=== PATIENT | female | born 1955 | race Caucasian/White ===

== ENCOUNTER 2018-09-15 11:48 | Emergency (ER) | payer OTHER ==
[2018-09-15] MEDS ORDERED: Sodium Chloride 0.9% 10 ML Syringe FLUSH PRN (12:00)
[2018-09-15] MEDS ORDERED: Sodium Chloride 0.9% 1,000 ML IV ONE (12:00)
--- NOTE | 2018-09-15 12:09 | EDM.PDOC ---
ED HPI GENERAL MEDICAL PROBLEM - General Stated Complaint: CHEST PAIN Time Seen by Provider: 09/15/18 11:49 Source of Information: Reports: Patient History Limitations: Reports: No Limitations - History of Present Illness INITIAL COMMENTS - FREE TEXT/NARRATIVE: Patient's a 63-year-old female who presents to the emergency department this afternoon with a complaint of chest pain. Patient states at noon yesterday, she had been gardening for approximately 3 hours and developed midsternal chest pain. Pain seemed to radiate to her left shoulder down left arm and also to her jaw. Patient decided to enter the house and lay down. Symptoms minimally improved and she was able to sleep for a few hours. At approximately 1 a.m. today patient woke, felt nauseous and vomited. Chest discomfort has persisted since, although diminished. Patient states that she has felt nauseous all morning and decided to contact the [facility]. She was advised to present to the emergency department. Patient does have a history of cardiomyopathy, but denies fever, out of country travel, lower extremity edema, bowel changes, blood in vomitus, change in medication, headache, dizziness, or vision changes. Onset: Sudden Onset Date: 09/14/18 Onset Time: 12:00 Duration: Day(s):, Waxing/Waning Location: Reports: Chest, Abdomen Quality: Reports: Dull Severity: Mild Improves with: Reports: None Worsens with: Reports: None Context: Reports: Activity. Denies: Exercise, Lifting, Sick Contact, Trauma Associated Symptoms: Reports: Chest Pain, Nausea/Vomiting. Denies: Cough, Diaphoresis, Fever/Chills, Headaches, Shortness of Breath, Syncope Left Posterior Chest Pain Score (Numeric/FACES): 3 - Related Data Allergies Allergy/AdvReac Type Severity Reaction Status Date / Time No Known Drug Allergies Allergy Cannot Verified 09/15/18 12:35 Remember Home Meds: Home Meds Metoprolol Succinate [Toprol XL 50mg] 50 mg PO BEDTIME 09/15/18 [History] Rosuvastatin Calcium 10 mg PO BEDTIME 09/15/18 [History] dilTIAZem HCl [Diltiazem 24Hr ER] 240 mg PO DAILY 09/15/18 [History] hydroCHLOROthiazide [Hydrochlorothiazide] 25 mg PO DAILY 09/15/18 [History] raNITIdine HCl [Zantac] 150 mg PO BEDTIME 09/15/18 [History] ED ROS GENERAL - Review of Systems Review Of Systems: ROS reveals no pertinent complaints other than HPI. Constitutional: Reports: No Symptoms HEENT: Reports: No Symptoms Respiratory: Reports: No Symptoms Cardiovascular: Reports: Chest Pain Endocrine: Reports: No Symptoms GI/Abdominal: Reports: No Symptoms : Reports: No Symptoms Musculoskeletal: Reports: No Symptoms Skin: Reports: No Symptoms Neurological: Reports: No Symptoms Psychiatric: Reports: No Symptoms Hematologic/Lymphatic: Reports: No Symptoms Immunologic: Reports: No Symptoms ED EXAM, GENERAL - Physical Exam Exam: See Below Exam Limited By: No Limitations General Appearance: Alert, WD/WN, No Apparent Distress Eye Exam: Bilateral Eye: Normal Inspection Nose: Normal Inspection, Normal Mucosa, No Blood Throat/Mouth: Normal Inspection, Normal Oropharynx, No Airway Compromise Head: Atraumatic, Normocephalic Neck: Normal Inspection, Supple, Non-Tender, Full Range of Motion. No: Carotid Bruit, Lymphadenopathy (L), Lymphadenopathy (R) Respiratory/Chest: No Respiratory Distress, Lungs Clear, Normal Breath Sounds, No Accessory Muscle Use Cardiovascular: Normal Peripheral Pulses, Bradycardia, Systolic Murmur GI/Abdominal: Normal Bowel Sounds, Soft, Non-Tender, No Organomegaly, No Abnormal Bruit, No Mass Back Exam: Normal Inspection. No: CVA Tenderness (L), CVA Tenderness (R) Extremities: Normal Inspection, Non-Tender, No Pedal Edema, Normal Capillary Refill Neurological: Alert, Oriented, CN II-XII Intact, Normal Cognition Psychiatric: Normal Affect, Normal Mood Skin Exam: Warm, Dry, Intact, Normal Color, No Rash Lymphatic: No Adenopathy EKG INTERPRETATION EKG Date: 09/15/18 Time: 12:00 Rhythm: Other (Sinus bradycardia) Rate (Beats/Min): 50 [place]: Normal P-Wave: Present QRS: Normal ST-T: Other (Flipped T waves) QT: Normal Comparison: NA - No Prior EKG EKG Interpretation Comments: second ekg at 1340: hr 58 / no change from previous Course - Vital Signs Last Recorded V/S: Last Vital Signs Temp 98.1 F 09/15/18 12:09 Pulse 52 L 09/15/18 12:45 Resp 17 09/15/18 12:45 BP 103/37 L 09/15/18 12:45 Pulse Ox 96 07/01/19 12:45 - Orders/Labs/Meds Orders: Active Orders 24 hr Category Date Time Status EKG Documentation Completion [RC] ASDIRECTED Care 09/15/18 11:59 Ordered EKG Documentation Completion [RC] ASDIRECTED Care 09/15/18 13:30 Ordered Peripheral IV Care [RC] . DIRECTED Care 09/15/18 12:00 Ordered Sodium Chloride 0.9% [Saline Flush] Med 09/15/18 12:00 Ordered 10 ml FLUSH Q8HR PRN Peripheral IV Insertion Adult [OM.PC] Routine Oth 09/15/18 12:00 Ordered Medication Orders Sodium Chloride (Saline Flush) 10 ml FLUSH Q8HR PRN PRN Reason: keep vein open Labs: Laboratory Tests 09/15/18 09/15/18 09/15/18 Range/Units 12:15 12:15 12:15 WBC 14.47 H (5.00-10.00) 10^3/uL RBC 4.24 (3.80-5.50) 10^6/uL Hgb 13.1 (12.0-16.0) g/dL Hct 38.1 (37.0-47.0) % MCV 89.9 D (82.0-92.0) fL MCH 30.9 (27.0-31.0) pg MCHC 34.4 (32.0-36.0) g/dL RDW 12.5 (11.5-14.5) % Plt Count 245 (150-400) 10^3/uL MPV 9.0 (7.4-10.4) fL Immature Gran % (Auto) 0.2 (0.0-5.0) % Neut % (Auto) 76.6 H (50.0-70.0) % Lymph % (Auto) 17.3 L (20.0-40.0) % [place] % (Auto) 5.6 (2.0-8.0) % Eos % (Auto) 0.2 L (1.0-3.0) % Baso % (Auto) 0.1 (0.0-1.0) % Immature Gran # (Auto) 0.03 (0.00-0.50) 10^3/uL Neut # (Auto) 11.08 H (2.50-7.00) 10^3/uL Lymph # (Auto) 2.51 (1.00-4.00) 10^3/uL [place] # (Auto) 0.81 H (0.10-0.80) 10^3/uL Eos # (Auto) 0.03 L (0.10-0.30) 10^3/uL Baso # (Auto) 0.01 (0.00-0.10) 10^3/uL PT 10.5 (8.9-11.4) SEC INR 1.0 (0.9-1.1) APTT 26.7 (23.1-31.9) SEC Sodium 141 (136-145) mmol/L Potassium 3.5 (3.3-5.3) mmol/L Chloride 103 (98-115) mmol/L Carbon Dioxide 27.8 (21.0-32.0) mmol/L Anion Gap 13.7 (5-15) mmol/L BUN 24 (6-25) mg/dL Creatinine 1.07 (0.51-1.17) mg/dL Est Cr Clr Drug Dosing 43.12 mL/min Estimated GFR (MDRD) 52 mL/min Glucose 101 H (75 - 99) mg/dL Calcium 9.5 (8.7-10.3) mg/dL Magnesium 2.3 (1.8-2.4) mg/dL Total Bilirubin 0.5 (0.2-1.0) mg/dL AST 102 H (15-37) U/L ALT 26 (12-78) U/L Alkaline Phosphatase 67 (46-116) IU/L Troponin I 10.72 H* (0.00-0.070) ng/mL B-Natriuretic Peptide 447 H (0-100) pg/mL Total Protein 8.0 (6.4-8.2) g/dL Albumin 3.69 (3.00-4.80) g/dL Lipase 84 (73-393) U/L Meds: Medications Generic Name Dose Route Start Last Admin Trade Name Freq PRN Reason Stop Dose Admin Sodium Chloride 10 ml 09/15/18 12:00 Saline Flush FLUSH Q8HR PRN keep vein open Discontinued Medications Generic Name Dose Route Start Last Admin Trade Name Freq PRN Reason Stop Dose Admin Aspirin 324 mg 09/15/18 13:57 Aspirin PO 07/01/19 13:58 ONETIME ONE Heparin Sodium (Porcine) 5,000 units 09/15/18 13:50 Heparin Sodium IVPUSH 09/15/18 13:51 ONETIME ONE Sodium Chloride 1,000 mls @ 999 mls/hr 09/15/18 12:00 09/15/18 12:15 Normal Saline IV 09/15/18 13:00 999 mls/hr .BOLUS ONE Administration Ondansetron HCl 4 mg 09/15/18 12:13 09/15/18 12:26 Zofran Odt PO 09/15/18 12:14 4 mg ONETIME ONE Administration - Radiology Interpretation Free Text/Narrative:: Chest x-ray shows no acute cardiopulmonary process - Re-Assessments/Exams Free Text/Narrative Re-Assessment/Exam: 09/15/18 14:[address] Hanna, cardiology at [facility]. Recommends patient be transferred to [place] for further workup. Discussed case with hospitalist DIRECT[employer] Madhavi Carlton, and patient will be admitted to their service in ICU. Currently, patient afebrile, vital signs stable, chest discomfort, midsternal, and minimal. Aspirin, 5000 Heparin bolus and heparin hourly started. Patient will be transferred via ground [facility] to [facility]. 09/15/18 14:15 Departure - Departure Time of Disposition: 14:05 Disposition: DC/Tfer to Acute Hospital 02 Reason for Transfer *Q: Primary PCI Indicated Condition: Fair Clinical Impression: Non-ST elevated myocardial infarction (non-STEMI) Chest pain Qualifiers: Chest pain type: unspecified Qualified Code(s): R07.9 - Chest pain, unspecified Referrals: Teresa Aldana MD [Primary Care Provider] - Forms: ED Department Discharge, Interfacility Transfer EMTALA - My Orders Last 24 Hours: My Active Orders 09/15/18 11:59 EKG Documentation Completion [RC] ASDIRECTED 09/15/18 12:00 Peripheral IV Care [RC] . DIRECTED Sodium Chloride 0.9% [Saline Flush] 10 ml FLUSH Q8HR PRN Peripheral IV Insertion Adult [OM.PC] Routine 09/15/18 13:30 EKG Documentation Completion [RC] ASDIRECTED - Assessment/Plan Last 24 Hours: My Active Orders 09/15/18 11:59 EKG Documentation Completion [RC] ASDIRECTED 09/15/18 12:00 Peripheral IV Care [RC] . DIRECTED Sodium Chloride 0.9% [Saline Flush] 10 ml FLUSH Q8HR PRN Peripheral IV Insertion Adult [OM.PC] Routine 09/15/18 13:30 EKG Documentation Completion [RC] ASDIRECTED Assessment:: Chest pain Plan: Transfer to [facility]
[2018-09-15] MEDS ORDERED: Ondansetron 4 MG Tab.DIS PO ONE (12:13)
--- NOTE | 2018-09-15 12:34 | CR ---
[id number] RAD/RAD Chest PA or AP 1V EXAM: SINGLE VIEW CHEST. INDICATION: CHEST PAIN COMPARISON: NO PREVIOUS SIMILAR EXAM IS AVAILABLE FINDINGS: The lungs are clear. The aorta is slightly tortuous. The cardiac silhouette is moderately enlarged. IMPRESSION: NO PNEUMONIA OR EDEMA. Aly Anton MD 09/15/18 [id number] Thank you for allowing us to participate in the care of your patient.
[2018-09-15 12:58] LABS: ANION GAP 13.7 mmol/L (5-15)
[2018-09-15] MEDS ORDERED: Heparin Sodium 5,000 Units/ML Vial IVPUSH ONE (13:50)
[2018-09-15] MEDS ORDERED: Aspirin 81 MG Tab.Chew PO ONE (13:57)
[2018-09-15] MEDS ORDERED: Heparin Sodium 5,000 Units/ML Vial IV ONE (14:16)
[2018-09-15] MEDS ORDERED: Heparin Sodium/0.45% NaCl 25,000 UNITS/250 ML BAG IV ONE (15:00)
== END 2018-09-15 14:45 ==
LOC: KA.ED 11:48
DX: I21.4 Non-ST elevation (NSTEMI) myocardial infarction (principal)
CPT/HCPCS: 36415; 71045; 80053; 83690; 83735; 83880; 84484; 85025; 85610; 85730; 93005; 96361; 96365; 99285; A9270; J1644; J7030

== ENCOUNTER 2021-08-07 13:56 | Emergency (ER) | payer BC, MEDICARE, OTHER | END 2021-08-07 14:40 | disposition home or self-care (01) | LOC: KA.ED 13:56 | DX: H34.239 Retinal artery branch occlusion, unspecified eye (principal); E78.00 Pure hypercholesterolemia, unspecified; I10 Essential (primary) hypertension; Z90.49 Acquired absence of other specified parts of digestive tract; Z79.899 Other long term (current) drug therapy | CPT/HCPCS: 99283 ==

== ENCOUNTER 2021-08-17 11:49 | Emergency (ER) | payer MEDICARE, OTHER ==
[2021-08-17] MEDS: Ondansetron 4 MG/2 ML SDV IVPUSH ONE (12:25)
[2021-08-17 12:30] LABS: ANION GAP 15.2 mmol/L (5-15); CHLORIDE,CL 103 mmol/L (98-107); SODIUM,NA 141 mmol/L (136-145)
[2021-08-17] MEDS: Ondansetron 4 MG/2 ML SDV ONE (12:43)
[2021-08-17] MEDS: Sodium Chloride 0.9% 10 ML Syringe FLUSH PRN (12:45)
[2021-08-17] MEDS: Heparin Sodium 5,000 Units/ML Vial IVPUSH ONE (12:48)
[2021-08-17] MEDS ORDERED: Furosemide 40 MG Tab PO ONE (12:53)
[2021-08-17] MEDS: Sodium Chloride 0.9% 50 ML IV ONE (13:05)
[2021-08-17] MEDS: Iopamidol 755 Mg/ML 75 ML Bottle IVPUSH ONE (13:05)
[2021-08-17] MEDS: Furosemide 40 MG/4 ML VIAL IVPUSH ONE (13:10)
[2021-08-17] MEDS: Nitroglycerin 0.4 MG Tab.SL SL ONE (13:10)
[2021-08-17] MEDS: Metoprolol Tartrate 5 MG/5 ML SDV IVPUSH ONE (13:28)
[2021-08-17] MEDS: Furosemide 40 MG/4 ML VIAL ONE (13:29)
[2021-08-17] MEDS: Piperacillin/Tazobactam/Dext 3.375 GM in Premix Bag 1 BAG IV ONE (13:30)
== END 2021-08-17 15:00 ==
LOC: KA.ED 11:49
DX: R09.02 Hypoxemia (principal); R06.02 Shortness of breath; I11.0 Hypertensive heart disease with heart failure; I50.9 Heart failure, unspecified; R79.1 Abnormal coagulation profile; R77.8 Other specified abnormalities of plasma proteins; R79.0 Abnormal level of blood mineral; K21.9 Gastro-esophageal reflux disease without esophagitis; Z86.73 Personal history of transient ischemic attack (TIA), and cerebral infarction without residual deficits; Z79.02 Long term (current) use of antithrombotics/antiplatelets; Z79.82 Long term (current) use of aspirin; Z72.0 Tobacco use
CPT/HCPCS: 36415; 51702; 71275; 80053; 81001; 83605; 83880; 84484; 85025; 85379; 85730; 93005; 93010; 94660; 96365; 96375; 99285; 99285-25; A9270-GY; J1644; J1940; J2405; J2543; J3490; Q9967